=== PATIENT | female | born 1990 | race Two or more races ===

== ENCOUNTER 2017-01-10 10:51 | Emergency (ER) | payer BC, MEDICAID ==
[~2017-01-10] VITALS: Ht 170.2 cm; Wt 117.0 kg
[2017-01-10 11:11] VITALS: BP 104/72
== END 2017-01-10 12:26 | disposition left against medical advice (07) ==
LOC: ER 10:51
DX: R07.0 Pain in throat (principal); J02.9 Acute pharyngitis, unspecified; Z53.21 Procedure and treatment not carried out due to patient leaving prior to being seen by health care provider